=== PATIENT | male | born 1985 | race Caucasian/White ===

== ENCOUNTER → 2017-11-24 10:34 | Outpatient (POV) | payer SELFPAY | PROVIDERS: Family Provider Family Medicine; PCP Family Medicine; Visit Provider Dentist | DX: Z00.00 Encounter for general adult medical examination without abnormal findings (principal) ==

== ENCOUNTER → 2017-12-08 10:41 | Outpatient (POV) | payer SELFPAY | PROVIDERS: Visit Provider Dentist | DX: Z00.00 Encounter for general adult medical examination without abnormal findings (principal) ==